=== PATIENT | male | born 1995 | race Caucasian/White ===

== ENCOUNTER 2019-03-07 17:25 | Emergency (ER) | payer BC ==
[2019-03-07 17:33] VITALS: BP 136/86
--- NOTE | 2019-03-07 17:46 | EDPHY ---
H & P Time Seen by Provider: 03/07/19 17:34 HPI/ROS: CHIEF COMPLAINT: Laceration right index finger HISTORY OF PRESENT ILLNESS: 23-year-old male right-hand dominant with up-to- date tetanus complaining of accidental laceration which occurred at work when his finger impacted a sharp edge sustaining laceration to the right index finger PHYSICAL EXAM (Prior to examination, patient consented to physical exam, hands were washed and my usual and customary physical exam procedures followed) 1) GENERAL: Well-developed, well-nourished, alert and oriented. Appears to be in no acute distress. 2) HEAD: Normocephalic 3) HEENT: sclera anicteric 4) LUNGS: Breathing comfortably. 5) SKIN: Right index finger middle phalanx lateral aspect 1.5 cm linear laceration. 6) MUSCULOSKELETAL: FDP, FDS intact. Extensor Function intact 7) NEUROLOGIC: Two-point discrimination intact Smoking Status: Never smoked Constitutional: Initial Vital Signs Temperature (C) 36.7 C 03/07/19 17:30 Heart Rate 75 03/07/19 17:30 Respiratory Rate 16 03/07/19 17:30 Blood Pressure 136/86 H 03/07/19 17:30 O2 Sat (%) 96 03/07/19 17:30 O2 Delivery Mode Room Air Allergies/Adverse Reactions: No Known Allergies Allergy (Unverified 03/07/19 17:33) Home Medications: Medication Instructions Recorded NK [No Known Home Meds] 03/07/19 MDM/Departure - MDM Imaging Results: Imaging Impressions Finger X-Ray 03/07/19 18:08 Impression: Normal x-ray of the right index finger. Images reviewed by myself Procedures: Procedure: Laceration repair. I explained the indications, risks and benefits for both laceration repair and anesthetic administration. Verbal consent was obtained from the [patient]. The laceration on the right index finger was anesthetized using [0.5% bupivicaine] [with][out] [epinephrine] [digital nerve block]. After anesthetic administered the patient was observed for a period of time and had no apparent adverse effects. The wound was cleaned, prepped, draped in normal sterile fashion and explored to its base. No foreign body seen, no foreign bodies palpated. [There were no deep structures involved.] [No tendon injury was identified.] The wound was repaired with [ 4 simple interrupted 5 O Prolene sutures ]. The wound repair was [simple]. The procedure was performed by [ myself]. Patient has been informed that scarring will occur, although efforts have been made to minimize this. - Depart Disposition: Home, Routine, Self-Care Clinical Impression: Laceration of right index finger Qualifiers: Encounter type: initial encounter Damage to nail status: without damage Foreign body presence: without foreign body Qualified Code(s): S61.210A - Laceration without foreign body of right index finger without damage to nail, initial encounter Condition: Good Instructions: Care For Your Stitches (ED), Laceration (ED) Additional Instructions: Return to the ER if you develop redness, swelling, discharge, warmth to the wound, red streaks going up your arm, or any other symptoms that concern you. Referrals: Return, to the ER in 10 days for suture removal [Other] - As per Instructions
== END 2019-03-07 18:25 | disposition home or self-care (01) ==
PROC: 0HQFXZZ Repair Right Hand Skin, External Approach (ICD-10-PCS; principal; 2019-03-07)
DX: S61.210A Laceration without foreign body of right index finger without damage to nail, initial encounter (principal); W26.9XXA Contact with unspecified sharp object(s), initial encounter; Y99.0 Civilian activity done for income or pay

== ENCOUNTER 2019-03-17 10:39 | Emergency (ER) | payer OTHER, BC | END 2019-03-17 12:20 | disposition home or self-care (01) ==